=== PATIENT | female | born 2005 | race American Indian/Alaskan Native ===

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

== ENCOUNTER 2025-01-19 13:28 | Emergency (ER) | payer OTHER ==
[~2025-01-19] VITALS: Ht 157.5 cm; Wt 65.8 kg
[2025-01-19] MEDS ORDERED: MUPIROCIN 15 GM OINT..GM TUBE TOP STA (14:59)
== END 2025-01-19 16:54 | disposition home or self-care (01) ==
LOC: ER 13:28 → EMR PED 13:40 → ER 13:40 → EMR PED 16:54
DX: T22.212A Burn of second degree of left forearm, initial encounter (principal)